=== PATIENT | male | born 1975 | race African-American/Black ===

== ENCOUNTER 2018-08-18 21:12 | Emergency (ER) | payer MEDICAID ==
[~2018-08-18] VITALS: Ht 177.8 cm; Wt 68.0 kg
[2018-08-19 04:57] VITALS: BP 122/76
== END 2018-08-19 04:57 | disposition home or self-care (01) ==
LOC: ER 21:12
DX: J40 Bronchitis, not specified as acute or chronic (principal); J06.9 Acute upper respiratory infection, unspecified; J45.909 Unspecified asthma, uncomplicated
CPT/HCPCS: 71045; 99283

== ENCOUNTER 2019-09-24 00:49 | Emergency (ER) | payer MEDICAID ==
[~2019-09-24] VITALS: Ht 157.5 cm; Wt 70.2 kg
[2019-09-24 04:27] VITALS: BP 120/79
== END 2019-09-24 04:32 | disposition home or self-care (01) ==
LOC: ER 02:44
DX: J40 Bronchitis, not specified as acute or chronic (principal)
CPT/HCPCS: 71045; 99283

== ENCOUNTER 2019-10-12 23:07 | Emergency (ER) | payer SELFPAY ==
[~2019-10-12] VITALS: Ht 170.2 cm; Wt 73.0 kg
[2019-10-13 00:04] VITALS: BP 114/84
== END 2019-10-13 02:15 | disposition left against medical advice (07) ==
LOC: ER 23:07
DX: R07.9 Chest pain, unspecified (principal); R05 Cough; Z53.21 Procedure and treatment not carried out due to patient leaving prior to being seen by health care provider

== ENCOUNTER 2019-10-13 04:55 | Emergency (ER) | payer SELFPAY ==
[~2019-10-13] VITALS: Ht 172.7 cm; Wt 73.0 kg
[2019-10-13 08:14] VITALS: BP 125/90
== END 2019-10-13 08:13 | disposition home or self-care (01) ==
LOC: ER 04:55
DX: J20.9 Acute bronchitis, unspecified (principal); R07.9 Chest pain, unspecified
CPT/HCPCS: 71045; 99283

== ENCOUNTER 2020-02-22 20:03 | Emergency (ER) | payer SELFPAY ==
[~2020-02-22] VITALS: Ht 177.8 cm; Wt 67.7 kg
[2020-02-22 20:20] VITALS: BP 117/80
== END 2020-02-22 22:26 | disposition home or self-care (01) ==
LOC: ER 20:03
DX: R05 Cough (principal); Z20.828 Contact with and (suspected) exposure to other viral communicable diseases; R51 Headache; M79.10 Myalgia, unspecified site
CPT/HCPCS: 71045; 99284; C9803; U0003; 87635

== ENCOUNTER 2020-06-09 04:03 | Inpatient (IN) | payer OTHER, MEDICAID ==
[~2020-06-09] VITALS: Ht 177.8 cm; Wt 68.0 kg
[2020-06-09] MEDS ORDERED: ACETAMINOPHEN WITH CODEINE 300/30MG TABLET PO ONE (06:30)
[2020-06-09] MEDS ORDERED: SODIUM CHLORIDE 0.9% 1,000 ML IV ONE (07:00)
[2020-06-09] MEDS ORDERED: ONDANSETRON HCL 4MG/2ML INJ IV ONE (07:00)
[2020-06-09] MEDS ORDERED: FENTANYL CITRATE/PF 50MCG/ML 2ML VIAL IV ONE ×5 (07:00→12:00)
[2020-06-09 08:17] LABS: BASOPHILS % 0.7 % (0.0-2.0); EOSINOPHILS % 4.7 % (0.0-5.0); HEMATOCRIT. 43.1 % (42.0-52.0); HEMOGLOBIN. 14.3 g/dL (14.0-18.0); LYMPHOCYTES % 26.8 % (20.0-50.0); MEAN CORPUSCULAR VOLUME 84.4 fL (80.0-94.0); MEAN PLATELET VOLUME 8.7 fl (7.4-10.4); MONOCYTES % 7.9 % (2.0-8.0); NEUTROPHILS % 59.9 % (40.0-76.0); PLATELET 172 x1000/uL (130-400); RED BLOOD CELL COUNT 5.11 mill/uL (4.7-6.1); RED CELL DISTRIBUTION WIDTH 13.5 % (11.6-14.6)
[2020-06-09 08:23] LABS: CHLORIDE 106 mEq/L (98-107)
[2020-06-09 08:41] LABS: PROTHROMBIN TIME 10.1 sec (9.6-11.0)
[2020-06-09] MEDS ORDERED: ACETAMINOPHEN 325MG TABLET PO ONE (12:00)
[2020-06-09 12:03] LABS: CLARITY URINE CLEAR (CLEAR); COLOR URINE YELLOW (YELLOW); KETONES URINE NEGATIVE (NEGATIVE); LEUKOCYTE ESTERASE URINE NEGATIVE (NEGATIVE); NITRITE URINE NEGATIVE (NEGATIVE); OCCULT BLOOD URINE NEGATIVE (NEGATIVE); PH URINE 5.5 (4.5-8.0); PROTEIN URINE NEGATIVE (NEGATIVE); SPECIFIC GRAVITY URINE 1.024 (1.005-1.030); UROBILINOGEN URINE 0.2 E.U./dL (0.2-1.0)
[2020-06-09 16:00] VITALS: BP 109/68
[2020-06-09 16:04] VITALS: BP 111/71
[2020-06-09] MEDS ORDERED: CETI5TAB5 MT (16:37)
[2020-06-09] MEDS ORDERED: ACETAMINOPHEN 325MG TABLET PO PRN (16:45)
[2020-06-09 17:40] VITALS: BP 109/68
[2020-06-09 20:00] VITALS: BP 104/54
[2020-06-09] MEDS: HYDROCODONE/ACETAMINOPHEN 5/325MG TABLET PO PRN (20:41)
[2020-06-09] MEDS ORDERED: OXYCODONE HCL 10MG TABLET SR 12HR PO SCH (21:00)
[2020-06-09] MEDS ORDERED: MORPHINE SULFATE 2 MG/ML CPJ (NOT FOR IM USE) IV PRN (21:30)
[2020-06-10] VITALS: BP 114/73
[2020-06-10 04:00] VITALS: BP 130/80
[2020-06-10 08:00] VITALS: BP_SYST 109; BP_SYST 111; BP_DIAS 69; BP_DIAS 72
[2020-06-10 12:00] VITALS: BP 111/72
[2020-06-10] MEDS ORDERED: KETOROLAC 30MG/ML VIAL IV SCH (12:00)
[2020-06-10] MEDS ORDERED: HYDR-3281 MT (13:36)
[2020-06-10] MEDS: HYDROCODONE/ACETAMINOPHEN 5/325MG TABLET PO PRN (15:36)
[2020-06-10 15:46] VITALS: BP 111/72
[2020-06-10 16:09] LABS: BASOPHILS % 0.4 % (0.0-2.0); EOSINOPHILS % 3.9 % (0.0-5.0); HEMOGLOBIN. 14.9 g/dL (14.0-18.0); LYMPHOCYTES % 19.1 % (20.0-50.0); MEAN CORPUSCULAR HEMOGLOBIN 28.3 pg (28.0-32.0); MEAN CORPUSCULAR VOLUME 85.2 fL (80.0-94.0); MEAN PLATELET VOLUME 8.5 fl (7.4-10.4); NEUTROPHILS % 69.6 % (40.0-76.0); PLATELET 166 x1000/uL (130-400); RED BLOOD CELL COUNT 5.29 mill/uL (4.7-6.1); RED CELL DISTRIBUTION WIDTH 13.9 % (11.6-14.6)
[2020-06-10 16:28] LABS: CHLORIDE 103 mEq/L (98-107)
[2020-06-13 04:16] LABS: NEISSERIA GONORRHOEAE NAA Negative (Negative)
== END 2020-06-10 16:06 | disposition home or self-care (01) | DRG 730 ==
LOC: ER 04:03 → 6EST 11:58 → ENRESERV 14:31
PROVIDERS: ADMIT Family Medicine; ATTEND Family Medicine
PROC: 0T9B70Z Drainage of Bladder with Drainage Device, Via Natural or Artificial Opening (ICD-10-PCS; principal; 2020-06-09)
DX: S30.21XA Contusion of penis, initial encounter (principal); X58.XXXA Exposure to other specified factors, initial encounter; R33.9 Retention of urine, unspecified; Z72.89 Other problems related to lifestyle; Y93.89 Activity, other specified; Y92.89 Other specified places as the place of occurrence of the external cause; Y99.8 Other external cause status
CPT/HCPCS: 36415; 72195; 76870; 80053; 81003; 85025; 86850; 86900; 87491; 87591; 93976; 99285; J1885; J2405; J3010; J7030

== ENCOUNTER 2020-06-10 23:10 | Emergency (ER) | payer MEDICAID ==
[~2020-06-10] VITALS: Ht 177.8 cm; Wt 65.0 kg
[~2020-06-10 23:10] MED LIST: CETI5TAB5 MT; HYDR-3281 MT
[2020-06-11 01:24] VITALS: BP 120/70
== END 2020-06-11 01:25 | disposition home or self-care (01) ==
LOC: ER 23:10
DX: S39.840A Fracture of corpus cavernosum penis, initial encounter (principal); X58.XXXA Exposure to other specified factors, initial encounter; R03.0 Elevated blood-pressure reading, without diagnosis of hypertension; Y93.89 Activity, other specified; Y92.89 Other specified places as the place of occurrence of the external cause
CPT/HCPCS: 99281